=== PATIENT | female | born 1960 | race Caucasian/White ===

== ENCOUNTER 2022-08-14 08:58 | Emergency (ER) | payer OTHER ==
[~2022-08-14] VITALS: Ht 157.5 cm; Wt 86.2 kg
[~2022-08-14 08:58] MED LIST: DEXL60CA3 PO
--- NOTE | 2022-08-14 09:08 | NUR ---
C/O RIGHT SHOULDER PAIN S/P SLIP AND FALL, PT DENIES LOC OR HITTING HEAD. LIMITED RANGE OF MOTION WITH ACHING PAIN OF 6/10.
[2022-08-14] MEDS ORDERED: IBUPROFEN 400 MG TABLET PO ONE (09:30)
[2022-08-14] MEDS ORDERED: IBUPROFEN 400 MG TABLET ONE (09:33)
[2022-08-14 10:58] VITALS: BP 168/84
--- NOTE | 2022-08-14 10:58 | NUR ---
Patient discharged to home in stable condition. Written and verbal after care instructions given. Patient verbalizes understanding of instruction.
== END 2022-08-14 10:59 | disposition home or self-care (01) ==
LOC: ER 08:59
DX: M25.511 Pain in right shoulder (principal); Z98.890 Other specified postprocedural states; Z79.899 Other long term (current) drug therapy
CPT/HCPCS: 73030-TC

== ENCOUNTER 2022-08-21 11:52 | Emergency (ER) | payer OTHER ==
[~2022-08-21] VITALS: Ht 157.5 cm; Wt 83.9 kg
[2022-08-21 11:52] VITALS: BP 165/76
[2022-08-21] MEDS ORDERED: KETO10TA2 PO (17:40)
[2022-08-21] MEDS ORDERED: HYDR-4209 PO (17:40)
== END 2022-08-21 17:56 | disposition home or self-care (01) ==
LOC: ER 11:55
DX: S32.029A Unspecified fracture of second lumbar vertebra, initial encounter for closed fracture (principal); Z88.0 Allergy status to penicillin; Z79.899 Other long term (current) drug therapy; W18.30XA Fall on same level, unspecified, initial encounter; Y93.89 Activity, other specified; Y92.89 Other specified places as the place of occurrence of the external cause; Y99.8 Other external cause status
CPT/HCPCS: 72131-TC